=== PATIENT | female | born 1945 | race Asian ===

== ENCOUNTER 2017-08-08 08:43 | Inpatient (IN) | payer MEDICARE, BC ==
[~2017-08-08] VITALS: Ht 162.6 cm; Wt 115.2 kg
[~2017-08-08 08:43] MED LIST: (None)15 GM; ATEN50 PO; CLOB.05TO; CLON2 PO; CYCL10 PO; Clobex59 ML TP; FURO20; Ferrous Sulfat325 MG; INS70/30PN; INSULANPEN; METF500 PO; METFORMIN HCL500 MG PO; METR70GEL VAG; MONT10T PO; MULTIVITAMIN PO; OMEPRAZOLE MAGN20 MG PO; Omeprazole20 M1 PO; PRAV20 PO; Pravachol80 MG PO; TRULICITY0.75 MG/0.; VALSARTAN-HCTZ1 EAC4 PO; VANICREAM453 GM; ZOLP10 PO
[2017-08-28] MEDS ORDERED: CLOBEX TOP (16:25)
[2017-08-28] MEDS ORDERED: MONT10T PO (16:27)
[2017-08-28] MEDS ORDERED: ZOLP10 PO (16:28)
[2017-08-28] MEDS ORDERED: INS70/30I (16:28)
[2017-08-28] MEDS ORDERED: Hair, Skin & N1 EACH PO (16:29)
[2017-08-28] MEDS ORDERED: METROGEL55 GM (16:29)
[2017-09-03 05:03] LABS: BASOPHILS ABSOLUTE AUTO 0.04 K/mm3 (0.00-0.23); BASOPHILS PERCENT AUTO 0 % (0-2); EOSINOPHILS ABSOLUTE AUTO 0.14 K/mm3 (0.00-0.68); EOSINOPHILS PERCENT AUTO 1 % (0-6); Hemoglobin 12.1 g/dL (11.5-16.0); IMMATURE GRAN ABSOLUTE AUTO 0.05 K/mm3 (0.00-0.10); IMMATURE GRAN PERCENT AUTO 1 % (0-1); LYMPHOCYTES ABSOLUTE AUTO 1.91 K/mm3 (0.84-5.20); LYMPHOCYTES PERCENT AUTO 18 % (21-46); MONOCYTES PERCENT AUTO 9 % (4-13); Mean Corpuscular HGB 27.9 pg (26.0-34.0); Mean Corpuscular Volume 90 fL (80-100); Mean Platelet Volume 9.6 fL (9.1-12.4); NEUTROPHILS ABSOLUTE AUTO 7.56 K/mm3 (1.96-9.15); NEUTROPHILS PERCENT AUTO 71 % (41-73); Platelet Count 200 K/mm3 (150-400); RDW Coefficient Variation 13.7 % (11.7-14.2); Red Blood Cell Count 4.33 M/mm3 (3.80-5.20)
[2017-09-03 05:26] LABS: Calcium, Blood 8.2 mg/dL (8.5-10.1); Creatinine, Blood 1.18 mg/dL (0.40-1.00); Magnesium, Blood 1.9 mg/dL (1.6-2.4)
[2017-09-05] MEDS ORDERED: ACET500 PO (14:48)
[2017-09-05] MEDS ORDERED: OXYC5 PO (14:48)
== END 2017-09-05 17:29 | disposition home health service (06) | DRG 470 ==
LOC: SURS 09-02 09:27 → PRE IP 09-02 14:00 → SURS 09-02 14:32
PROVIDERS: Orthopaedic Surgery
PROC: 0SRD0J9 Replacement of Left Knee Joint with Synthetic Substitute, Cemented, Open Approach (ICD-10-PCS; principal; 2017-09-02 16:00)
DX: M17.12 Unilateral primary osteoarthritis, left knee (principal); E11.9 Type 2 diabetes mellitus without complications; I10 Essential (primary) hypertension; E78.00 Pure hypercholesterolemia, unspecified; K21.9 Gastro-esophageal reflux disease without esophagitis; G89.29 Other chronic pain; M54.9 Dorsalgia, unspecified; I25.2 Old myocardial infarction; Z91.048 Other nonmedicinal substance allergy status; Z79.84 Long term (current) use of oral hypoglycemic drugs; Z79.4 Long term (current) use of insulin; Z79.899 Other long term (current) drug therapy; Z87.891 Personal history of nicotine dependence
CPT/HCPCS: 36415; 73560-LT; 80048; 82947; 83735; 85025; 88300; 97110; 97116; 97162; 97530; C1713; C1776; G8978; G8979; J0171; J0690; J0735; J1170; J1815; J1885; J2250; J2405; J2550; J2710; J2795; J3010; J7120

== ENCOUNTER → 2019-01-27 | Outpatient (CLI) | payer MEDICARE ==
[~2019-01-27] MED LIST changes: +ACET500 PO; +CLOBEX TOP; +Hair, Skin & N1 EACH PO; +INS70/30I; +METROGEL55 GM; +OXYC5 PO
[2019-01-30 00:21] LABS: Adenovirus F 40/41 Not Detected (NOT DETECT); Astrovirus Not Detected (NOT DETECT); Campylobacter Sp Not Detected (NOT DETECT); Cryptosporidium Not Detected (NOT DETECT); Cyclospora Cayetanensis Not Detected (NOT DETECT); E. Coli O157 Not Detected (NOT DETECT); Entamoeba Histolytica Not Detected (NOT DETECT); Enteroaggregative E. coli-EAEC Not Detected (NOT DETECT); Enteropathogenic E. coli-EPEC Not Detected (NOT DETECT); Enterotoxigenic E. coli-ETEC Not Detected (NOT DETECT); Giardia Lamblia Not Detected (NOT DETECT); Norovirus GI/GII Not Detected (NOT DETECT); Plesiomonas Shigelloides Not Detected (NOT DETECT); Rotavirus A Not Detected (NOT DETECT); Salmonella Sp Not Detected (NOT DETECT); Sapovirus Not Detected (NOT DETECT); Shiga Toxin-prod E. coli-STEC Not Detected (NOT DETECT); Shigella/Enteroin E. coli-EIEC Not Detected (NOT DETECT); Vibrio Cholerae Not Detected (NOT DETECT); Vibrio Sp Not Detected (NOT DETECT); Yersinia Enterocolitica Not Detected (NOT DETECT)
== END | disposition home or self-care (01) ==
LOC: LAB SHORT 20:30 → LAB 20:30
PROVIDERS: Nurse Practitioner Family
DX: E11.65 Type 2 diabetes mellitus with hyperglycemia (principal); R19.7 Diarrhea, unspecified
CPT/HCPCS: 0097U

== ENCOUNTER 2019-06-02 09:56 | Day surgery (SDC) | payer MEDICARE ==
[~2019-06-02] VITALS: Ht 162.6 cm; Wt 113.3 kg
== END 2019-06-02 12:27 | disposition home or self-care (01) ==
LOC: ORSCSDS 09:56
PROVIDERS: Surgery
PROC: 0DBE8ZX Excision of Large Intestine, Via Natural or Artificial Opening Endoscopic, Diagnostic (ICD-10-PCS; principal; 2019-06-02 11:15)
DX: R19.7 Diarrhea, unspecified (principal); K52.831 Collagenous colitis; I10 Essential (primary) hypertension; E11.9 Type 2 diabetes mellitus without complications; I25.10 Atherosclerotic heart disease of native coronary artery without angina pectoris; Z87.891 Personal history of nicotine dependence; Z79.899 Other long term (current) drug therapy; E66.01 Morbid (severe) obesity due to excess calories; Z68.42 Body mass index [BMI] 45.0-49.9, adult; Z79.4 Long term (current) use of insulin
CPT/HCPCS: 82947; 88305; 88313; J2704; J7120

== ENCOUNTER → 2024-07-29 | Outpatient (CLI) | payer MEDICARE ==
[2024-07-29 20:28] LABS: Microalb/Creat Ratio UR, Rand 63.19 mg/g (0.000-30.000)
== END ==
LOC: LAB 15:19 → LAB SHORT 15:19
PROVIDERS: Family Medicine
DX: E11.65 Type 2 diabetes mellitus with hyperglycemia (principal); E11.22 Type 2 diabetes mellitus with diabetic chronic kidney disease; E11.69 Type 2 diabetes mellitus with other specified complication
CPT/HCPCS: 82043; 82570